=== PATIENT | male | born 2000 | race African-American/Black ===

== ENCOUNTER 2022-10-23 13:43 | Emergency (ER) | payer OTHER ==
[2022-10-23 13:53] VITALS: BP 132/85
--- NOTE | 2022-10-23 14:26 | ED Physician Documentation ---
PD HPI HEENT - Stated complaint Stated Complaint: COUGH,HEADACHE,STUFFY NOSE - Chief complaint Chief Complaint: Heent - History obtained from History obtained from: Patient - Additional information Additional information: Previously healthy 22-year-old gentleman who is active duty in the [employer] got sick 5 days ago with nasal congestion, his throat was feeling weird, not particularly painful. He developed a headache. He denies fevers or body aches. He does not have a cough or shortness of breath. No sick contacts. Did not self check for COVID. Missed work yesterday and today. PD PAST MEDICAL HISTORY - Past Medical History Past Medical History: No - Past Surgical History Past Surgical History: No - Present Medications Home Medications: Ambulatory Orders Medication Instructions Recorded Confirmed Guaifenesin/Pseudoephedrne HCl 1 each PO BID PRN #20 tab 10/23/22 [Mucinex D ER 600-60 mg Tablet] Ibuprofen [Motrin] 400 mg PO DAILY 10/23/22 10/23/22 Ibuprofen [Motrin] 600 mg PO Q6H PRN #30 tab 10/23/22 - Allergies Allergies/Adverse Reactions: Allergies Allergy/AdvReac Type Severity Reaction Status Date / Time No Known Drug Allergies Allergy Verified 10/23/22 13:53 - Social History Does the pt smoke?: No Smoking Status: Never smoker Does the pt drink ETOH?: Yes Does the pt have substance abuse?: No - Immunizations Immunizations are current?: Yes PD ED PE NORMAL - Vitals Vital signs reviewed: Yes - General General: Alert and oriented X 3, No acute distress - HEENT HEENT: Ears normal, Other (Slightly scratchy hoarse voice but visualized portions of the oropharynx are normal.) - Neck Neck: Supple, no meningeal sign, No bony TTP - Cardiac Cardiac: RRR, No murmur - Respiratory Respiratory: No respiratory distress, Clear bilaterally - Abdomen Abdomen: Non tender - Neuro Neuro: Alert and oriented X 3, Normal speech Results - Vitals Vitals: Vital Signs - 24 hr 10/23/22 13:51 Temperature 37.3 C Heart Rate 106 H Respiratory 20 Rate Blood Pressure 132/85 H O2 Saturation 100 Oxygen O2 Source Room air - Labs Labs: Laboratory Tests 10/23/22 14:27 SARS-CoV-2 (PCR) NOT DETECTED PD Medical Decision Making - ED course ED course: 22-year-old gentleman with viral URI. Needs some time off work and a decongestant. Will check for COVID. Departure - Departure Disposition: 01 Home, Self Care Clinical Impression: Viral URI Condition: Good Record reviewed to determine appropriate education?: Yes Instructions: ED Viral Syndrome Prescriptions: Ibuprofen [Motrin] 600 mg PO Q6H PRN #30 tab PRN Reason: Pain Guaifenesin/Pseudoephedrne HCl [Mucinex D ER 600-60 mg Tablet] 1 each PO BID PRN #20 tab PRN Reason: congestion Comments: You have a Covid test pending. You need to self quarantine until the result is done and negative. Do not leave your house. Do not get near anybody. The results should be done in 48 to 72 hours. We will call with a positive result, the fastest way to get a negative result for confirmation though is to go to the hospital website at [email or web address], click on the my [email or web address] tab and sign up for the patient portal. Follow-up with your primary care physician if not better by midweek. Return for new or worsening symptoms. Forms: Activity restrictions Discharge Date/Time: 10/23/22 14:30
== END 2022-10-23 14:30 | disposition home or self-care (01) ==
LOC: ED 13:43
DX: J06.9 Acute upper respiratory infection, unspecified (principal); Z20.822 Contact with and (suspected) exposure to COVID-19
CPT/HCPCS: 99283

== ENCOUNTER 2022-12-21 17:38 | Emergency (ER) | payer OTHER ==
[2022-12-21 18:04] VITALS: BP 127/79
[2022-12-21] MEDS ORDERED: LIDOCAINE PATCH 5% TOP STA (18:39)
--- NOTE | 2022-12-21 19:28 | XRAY Report ---
PROCEDURE: Ankle 3 View LT INDICATIONS: fall/injury TECHNIQUE: 3 views of the ankle were acquired. COMPARISON: None. FINDINGS: Bones: No fractures or dislocations. Ankle mortise is normally aligned. No suspicious bony lesions . Soft tissues: No tibiotalar joint effusion. Achilles tendon appears normal. IMPRESSION: Normal left ankle Reviewed by: Minh Elmore on 12/21/2022 7:26 PM PDT Approved by: Minh Elmore on 12/21/2022 7:26 PM PDT Station ID: [id number]
--- NOTE | 2022-12-21 19:29 | XRAY Report ---
PROCEDURE: Foot 3 View LT INDICATIONS: fall/injury TECHNIQUE: 3 with views of the foot were acquired. COMPARISON: None. FINDINGS: Bones: No fractures or dislocations. No suspicious bony lesions. Soft tissues: No suspicious soft tissue calcifications or masses. IMPRESSION: Normal left ankle Reviewed by: Minh Elmore on 12/21/2022 7:27 PM PDT Approved by: Minh Elmore on 12/21/2022 7:27 PM PDT Station ID: [id number]
--- NOTE | 2022-12-21 19:47 | ED Physician Documentation ---
PD HPI LOWER EXT INJURY - Stated complaint Stated Complaint: FOOT,BACK,ARM PAIN - Chief complaint Chief Complaint: Ext Problem - History obtained from History obtained from: Patient - Additional information Additional information: Patientis a 22-year-old male presenting for evaluation of left ankle and foot pain that have been present for several weeks. Patient states he rolled his ankle while hiking. He has been having pain in the ankle since then. He went to the [facility] last week and had an x-ray done but he is unsure of the result. Patient states that he has also developed pain now radiating into the left foot. He also reports for the past week or 2 he has had pain in his low back. He denies having pain initially in the low back after his fall. He states that the pain is intermittent and feels like an ache. Is worse with certain movements.He also reports having intermittent pain sometimes in his right arm with certain movements that is not currently present. He denies head injuries. He does not take a blood thinner. Review of Systems Constitutional: denies: Fever Cardiac: denies: Chest pain / pressure Respiratory: denies: Dyspnea GI: denies: Abdominal Pain Musculoskeletal: reports: Back pain, Extremity pain Neurologic: denies: Headache PD PAST MEDICAL HISTORY - Past Surgical History Past Surgical History: No - Present Medications Home Medications: Ambulatory Orders Medication Instructions Recorded Confirmed Guaifenesin/Pseudoephedrne HCl 1 each PO BID PRN #20 tab 10/23/22 [Mucinex D ER 600-60 mg Tablet] Ibuprofen [Motrin] 400 mg PO DAILY 10/23/22 10/23/22 Ibuprofen [Motrin] 600 mg PO Q6H PRN #30 tab 10/23/22 - Allergies Allergies/Adverse Reactions: Allergies Allergy/AdvReac Type Severity Reaction Status Date / Time No Known Drug Allergies Allergy Verified 12/21/22 18:04 - Social History Does the pt smoke?: No Smoking Status: Never smoker Does the pt drink ETOH?: Yes Does the pt have substance abuse?: No - Immunizations Immunizations are current?: Yes PD ED PE NORMAL - General General: Alert and oriented X 3, No acute distress, Well developed/nourished - HEENT HEENT: Atraumatic - Neck Neck: Supple, no meningeal sign - Cardiac Cardiac: RRR, Strong equal pulses - Respiratory Respiratory: No respiratory distress, Clear bilaterally - Back Back: No spinal TTP - Extremities Extremities: Other (Tenderness to left lateral foot and lateral aspect of the ankle; Normal range of motion at all joints of right arm) - Neuro Neuro: No motor deficit, No sensory deficit Results - Vitals Vitals: Vital Signs - 24 hr 12/21/22 12/21/22 17:59 19:53 Temperature 36.8 C Heart Rate 69 72 Respiratory 16 18 Rate Blood Pressure 127/79 127/79 O2 Saturation 99 100 Oxygen O2 Source Room air PD Medical Decision Making - ED course Complexity details: reviewed results, re-evaluated patient ED course: Patient presenting for evaluation of left foot and ankle pain that been present for a few weeks since rolling it while hiking. There is no visible deformity. Patient had an outpatient x-ray of the ankle but is unsure of the results. Therefore I did order an x-ray of the ankle as well as the foot and reviewed these images and I see no fracture or dislocation. Patient is also reported having low back pain although this did not start immediately after the fall.As such I do not think he needs any emergent imaging of the back as he does not have tenderness to the back. He also has no red flag signs or symptoms in regards to back pain. He is ambulatory here. We will apply an [place] wrap To the foot and ankle and [facility] Patient counseled on concerning symptoms to return for. Departure - Departure Disposition: 01 Home, Self Care Clinical Impression: Left ankle injury, Left foot pain, Low back strain Condition: Stable Instructions: ED Sprain Foot, ED Sprain Ankle Follow-Up: CLEO Lawson [Provider Group] Comments: The x-rays of your foot and ankle do not show a broken or out of place bone. You can still have injuries to muscles and ligaments in the area called the sprain. Please continue to use an [place] wrap as needed for support. I would continue with anti-inflammatory such as ibuprofen or acetaminophen. Please make sure to [facility] If you have any new or worsening symptoms please consider return to the ER. Discharge Date/Time: 12/21/22 20:02
== END 2022-12-21 20:02 | disposition home or self-care (01) ==
LOC: ED 17:38
DX: S99.912A Unspecified injury of left ankle, initial encounter (principal); S39.012A Strain of muscle, fascia and tendon of lower back, initial encounter; X50.1XXA Overexertion from prolonged static or awkward postures, initial encounter; Y93.01 Activity, walking, marching and hiking
CPT/HCPCS: 73610; 73630; 99283; A9270